=== PATIENT | female | born 1960 | race Caucasian/White ===

== ENCOUNTER 2018-05-30 22:41 | Emergency (ER) | payer MEDICARE, MEDICAID, SELFPAY ==
[2018-05-30 22:53] VITALS: BP 160/97; PULSE 105; RESP 16; TEMP 36.6; O2SAT 96
--- NOTE | 2018-05-30 23:19 | DI.CT.S_ITS ---
PROCEDURE: CT HEAD/BRAIN WO CON INDICATIONS: abnormal headache TECHNIQUE: Noncontrast 4.5 mm thick angled axial sections acquired from the foramen magnum to the vertex, with coronal and sagittal reformats. For radiation dose reduction, the following was used: automated exposure control, adjustment of mA and/or kV according to patient size. COMPARISON: None. FINDINGS: Image quality: Excellent. CSF spaces: Basal cisterns are patent. No extra-axial fluid collections. Ventricles are normal in size and shape. Brain: No midline shift. No intracranial masses or hemorrhage. Howard-white matter interface is normal. Skull and face: 0.7 cm oval circumscribed rounded soft tissue mass with punctate internal calcification within the subcutaneous tissues of the right frontal scalp, without underlying calvarial abnormality. Sinuses: Visualized sinuses and mastoids are clear. IMPRESSION: 1. No acute intracranial abnormality. 2. 0.7 cm rounded soft tissue mass with punctate internal calcification within the subcutaneous tissues of the right frontal scalp, without underlying calvarial abnormality. This may represent a sebaceous cyst. Clinical correlation recommended. This report is concordant with the overnight preliminary [facility] radiology report of Dr. Josue Gomez. Dictated by: Jamie Antonio M.D. on 05/31/2018 at 5:47 Approved by: Jamie Antonio M.D. on 05/31/2018 at 5:54
--- NOTE | 2018-05-30 23:45 | ED.OVERDOSE ---
HPI - Overdose General Chief Complaint: Toxicology Problem Stated Complaint: Possible accidental overdose Time Seen by Provider: 05/30/18 22:50 Source: patient, family (friend) and EMS Mode of arrival: ambulatory Limitations: no limitations History of Present Illness HPI Narrative: Patient is a 58-year-old female who has a history MS like disease of baseline confusion sometimes right-sided weakness. She is visiting from [place] here with a friend. She has a pill box, she thinks she may have taken double her medications. She does remember if she took them or not. However the Friday p.m. box (which is tonight), there are pills in the Box. She says she woke up this morning with a migraine which is not atypical for her she frequently has migraines get on the right side or the left side however this 1 is in the center which is abnormal. She then found out that a friend this morning. She took 10 200 mg tablets of ibuprofen to help get rid of her headache which she says did help. She has not intentionally trying her kill or harm herself. She simply cannot remember what pills she took. Possible 90 duloxetine, Synthroid x2 doses, omeprazole x2 doses. She overall is an extremely poor historian and her friend who is a physical therapist in giving much of the history. Related Data Allergies Allergy/AdvReac Type Severity Reaction Status Date / Time Many unknown allergies Allergy Uncoded 05/30/18 22:53 Review of Systems Review of Systems ROS Unobtainable: All systems reviewed & are unremarkable except as noted in HPI and below Constitutional Denies chills, Denies fever(s) and Reports headache(s) Eyes Denies change in vision, Denies eye discharge, Denies irritation and Denies loss of vision ENT Ears, Nose, Mouth, and Throat: Reports headache(s) Cardiovascular Denies dyspnea and Denies dyspnea on exertion Respiratory Denies cough, Denies dyspnea, Denies dyspnea on exertion and Denies wheezing Genitourinary Denies hematuria, Denies flank pain, Denies urinary incontinence and Denies urinary urgency Musculoskeletal Denies back pain, Denies muscle weakness, Denies numbness and Denies tingling Integumentary/Breasts Denies pruritus, Denies erythema, Denies rash and Denies wounds Neurologic Denies behavioral changes, Reports headache(s), Denies loss of vision, Denies numbness and Denies tingling Psychiatric Denies behavioral changes, Denies depression and Denies suicidal ideation Allergic/Immunologic Denies wheezing [facility] Medical History Hypertension (Acute) Hypothyroid (Acute) Multiple sclerosis (Acute) Social History (Updated 05/31/18 @ 01:59 by Cary Abel DO) Smoking Status: Never smoker alcohol intake: never substance use type: does not use Social History Smoking Status: Never smoker alcohol intake: never substance use type: does not use Comment: from out of town Exam Initial Vital Signs Initial Vital Signs: Vital Signs Temperature 97.9 F 05/30/18 22:53 Pulse Rate 105 H 05/30/18 22:53 Respiratory Rate 16 05/30/18 22:53 Blood Pressure 160/97 H 05/30/18 22:53 Pulse Oximetry 96 05/30/18 22:53 GENERAL: Alert well-appearing female and in no acute distress. HEENT: Head atraumatic,EOMI, pupils reactive, face symmetric, neck is supple CARDIOVASCULAR: Regular rate and rhythm without murmurs, rubs or gallops. RESPIRATORY: Breath sounds equal bilaterally, no wheezes rales or rhonchi. ABDOMEN: Soft, nontender. Normoactive bowel sounds all 4 quadrants. No guarding or rebound. EXTREMITIES: Normal range of motion, no clubbing or edema. Neurovascularly intact NEUROLOGICAL: Alert and oriented x4.Normal gait and speech. Cranial nerves II through XII grossly intact. dat instructor strength equal bilaterally sensation intact extremities move lower extremities equally SKIN: Warm, dry, no laceration, no petechiae, no rashes or lesions. Course Orders Ordered: ED Orders 05/30/18 23:19 CT head/brain wo con Stat 05/30/18 23:45 Acetaminophen Stat Complete Blood Count AUTO DIFF Stat Comprehensive Metabolic Panel Stat Ethanol (ETOH) Stat Salicylate Stat 05/31/18 00:14 Urine Drug Screen, Rapid Stat Discontinued Medications Acetaminophen (Tylenol) 975 mg PO NOW ONE Stop: 05/31/18 01:22 Last Admin: 05/31/18 01:24 Dose: 975 mg Sodium Chloride (Normal Saline 0.9%) 1,000 mls @ 1,000 mls/hr IV CONT ROLA Last Infusion: 05/31/18 01:40 Dose: 0 mls/hr Admin: 05/31/18 00:02 Dose: 1,000 mls/hr Vital Signs - 8 hr 05/30/18 22:53 05/31/18 01:10 Temperature 97.9 F Pulse Rate 105 H 99 H Respiratory Rate 16 17 Blood Pressure 160/97 H Blood Pressure [Right Arm] 166/99 H Pulse Oximetry 96 97 MDM - Overdose Lab Data Attestation: I reviewed the patient's lab results. Result diagrams: 05/30/18 23:45 05/30/18 23:45 Lab Results 05/30/18 05/30/18 05/31/18 Range/Units 23:45 23:45 00:14 WBC 9.8 (4.5-11.0) X10^3/uL RBC 4.23 (4.0-5.2) X10^6/uL Hgb 13.4 (12.0-16.0) g/dL Hct 39.5 (36-46) % MCV 93.5 (80-100) fL MCH 31.6 (26-34) PG MCHC 33.8 (30-36) % RDW 12.7 (11.6-14.8) % Plt Count 341 (150-400) X10^3/uL Neut % (Auto) 60.8 (50-75) % Lymph % (Auto) 28.7 (25-40) % [place] % (Auto) 9.9 (3-14) % Eos % (Auto) 0.3 L (2-4) % Baso % (Auto) 0.3 (0-2) % Neut # (Auto) 6000 (7361-3871) /uL Lymph # (Auto) 2800 (2397-0651) /uL [place] # (Auto) 1000 H (0-900) /uL Eos # (Auto) 0 (0-450) /uL Baso # (Auto) 0 (0-100) /uL Sodium 140 (137-145) mmol/L Potassium 3.9 (3.4-5.1) mmol/L Chloride 109 H (98-107) mmol/L Carbon Dioxide 21 L (22-32) mmol/L BUN 15 (7-17) mg/dL Creatinine 0.80 (0.52-1.04) mg/dL Estimated GFR > 60.0 (>60) mL/min BUN/Creatinine Ratio 18.8 (6-22) Glucose 103 H (70-100) mg/dL Calcium 9.6 (8.4-10.2) mg/dL Total Bilirubin 0.3 (0.2-1.3) mg/dL AST 19 (14-36) IU/L ALT 25 (9-52) IU/L Alkaline Phosphatase 104 (38-126) U/L Total Protein 7.3 (6.3-8.2) g/dL Albumin 4.4 (3.5-5.0) g/dL Globulin 2.9 (1.7-4.1) g/dL Albumin/Globulin Ratio 1.5 (1.0-2.8) Salicylates < 1.0 (<20) mg/dL Urine Opiates Screen Negative (Negative) Ur Oxycodone Screen Negative (Negative) Urine Methadone Screen Negative (Negative) Acetaminophen < 10 L (10-30) ug/mL Ur Barbiturates Screen Negative (Negative) U Tricyclic Antidepress Negative (Negative) Ur Phencyclidine Scrn Negative (Negative) Ur Amphetamines Screen Negative (Negative) U Methamphetamines Scrn Negative (Negative) Ur MDMA Scrn (Ecstasy) Negative (Negative) U Benzodiazepines Scrn Negative (Negative) Urine Cocaine Screen Negative (Negative) U Marijuana (THC) Screen Negative (Negative) Ethyl Alcohol < 10 mg/dL Imaging Data CT scan - head: 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 ECG Data Attestation: I personally reviewed and interpreted this ECG as follows: Prior ECG tracings: not available for review Interpretation: Sinus rhythm rate 1 0 [place] interval 160 QRS 83 QTC 381. MDM Narrative Medical decision making narrative: Patient adamantly denies any suicidal ideations. His it is unclear even if she took extra medication at all. She can't remember if she took medication although she states that she did take ibuprofen for her headache. her friend is with her and has known her for awhile. Patient does get help with medications at home somebody put some into a pillbox for her. With this time I strongly recommended that somebody be in charge of giving her her medications. If she can't remember when she took them than she is not reliable and can easily overdose. Poison Control was contacted by nursing. Recommended patient to be watched for 8 hours after ingestion. Possible ingestion time at 6:00 p.m.. Patient has not had any signs or symptoms of any overdose is. She still complains of headache. she is given for her pain. Discharge Plan Departure Patient Disposition: Home Clinical Impression: Overdose Qualifiers: Encounter type: initial encounter Injury intent: accidental or unintentional Qualified Code(s): T50.901A - Poisoning by unspecified drugs, medicaments and biological substances, accidental (unintentional), initial encounter Discharge Date/Time: 05/31/18 01:46 Interventions: ED Discharge Assessment Last Done: 05/31/18 01:45 Instructions: DI for Drug Overdose in Adults Activity Restrictions/Additional Instructions: *You have been diagnosed with accidental overdose *What to do: YOU WILL NEED SOMEONE TO GIVE YOU PILLS FROM NOW ON *Continue to take medications as directed Ibuprofen 600 mg every 6-8 hours as needed for pain do not take any for 24 hours *Follow up with your primary care provider in 2-3 days *Return to ER if you should have or any new, worsening or concerning symptoms
--- NOTE | 2018-05-30 23:48 | ED_ITS ---
HPI - Overdose General Chief Complaint: Toxicology Problem Stated Complaint: Possible accidental overdose Time Seen by Provider: 05/30/18 22:50 Source: patient, family (friend) and EMS Mode of arrival: ambulatory Limitations: no limitations History of Present Illness HPI Narrative: Patient is a 58-year-old female who has a history MS like disease of baseline confusion sometimes right-sided weakness. [place] is [place] here with a friend. She has a pill box, she thinks she may have taken double her medications. She does remember if she took them or not. However the Friday p.m. box (which is tonight), there are pills in the Box. She says she woke up this morning with a migraine which is not atypical for her she frequently has migraines get on the right side or the left side however this 1 is in the center which is abnormal. She then found out that a friend this morning. She took 10 200 mg tablets of ibuprofen to help get rid of her headache which she says did help. She has not intentionally trying her kill or harm herself. She simply cannot remember what pills she took. Possible 90 duloxetine, Synthroid x2 doses, omeprazole x2 doses. She overall is an extremely poor historian and her friend who is a physical therapist in giving much of the history. Related Data Allergies Allergy/AdvReac Type Severity Reaction Status Date / Time Many unknown allergies Allergy Uncoded 05/30/18 22:53 Review of Systems Review of Systems ROS Unobtainable: All systems reviewed & are unremarkable except as noted in HPI and below Constitutional Denies chills, Denies fever(s) and Reports headache(s) Eyes Denies change in vision, Denies eye discharge, Denies irritation and Denies loss of vision ENT Ears, Nose, Mouth, and Throat: Reports headache(s) Cardiovascular Denies dyspnea and Denies dyspnea on exertion Respiratory Denies cough, Denies dyspnea, Denies dyspnea on exertion and Denies wheezing Genitourinary Denies hematuria, Denies flank pain, Denies urinary incontinence and Denies urinary urgency Musculoskeletal Denies back pain, Denies muscle weakness, Denies numbness and Denies tingling Integumentary/Breasts Denies pruritus, Denies erythema, Denies rash and Denies wounds Neurologic Denies behavioral changes, Reports headache(s), Denies loss of vision, Denies numbness and Denies tingling Psychiatric Denies behavioral changes, Denies depression and Denies suicidal ideation Allergic/Immunologic Denies wheezing [facility] Medical History Hypertension (Acute) Hypothyroid (Acute) Multiple sclerosis (Acute) Social History (Updated 05/31/18 @ 01:59 by Cary Abel DO) Smoking Status: Never smoker alcohol intake: never substance use type: does not use Social History Smoking Status: Never smoker alcohol intake: never substance use type: does not use Comment: from out of town Exam Initial Vital Signs Initial Vital Signs: Vital Signs Temperature 97.9 F 05/30/18 22:53 Pulse Rate 105 H 05/30/18 22:53 Respiratory Rate 16 05/30/18 22:53 Blood Pressure 160/97 H 05/30/18 22:53 Pulse Oximetry 96 05/30/18 22:53 GENERAL: Alert well-appearing female and in no acute distress. HEENT: Head atraumatic,EOMI, pupils reactive, face symmetric, neck is supple CARDIOVASCULAR: Regular rate and rhythm without murmurs, rubs or gallops. RESPIRATORY: Breath sounds equal bilaterally, no wheezes rales or rhonchi. ABDOMEN: Soft, nontender. Normoactive bowel sounds all 4 quadrants. No guarding or rebound. EXTREMITIES: Normal range of motion, no clubbing or edema. Neurovascularly intact NEUROLOGICAL: Alert and oriented x4.Normal gait and speech. Cranial nerves II through XII grossly intact. material handler floorperson strength equal bilaterally sensation intact extremities move lower extremities equally SKIN: Warm, dry, no laceration, no petechiae, no rashes or lesions. Course Orders Ordered: ED Orders 05/30/18 23:19 CT head/brain wo con Stat 05/30/18 23:45 Acetaminophen Stat Complete Blood Count AUTO DIFF Stat Comprehensive Metabolic Panel Stat Ethanol (ETOH) Stat Salicylate Stat 05/31/18 00:14 Urine Drug Screen, Rapid Stat Discontinued Medications Acetaminophen (Tylenol) 975 mg PO NOW ONE Stop: 05/31/18 01:22 Last Admin: 05/31/18 01:24 Dose: 975 mg Sodium Chloride (Normal Saline 0.9%) 1,000 mls @ 1,000 mls/hr IV CONT ROLA Last Infusion: 05/31/18 01:40 Dose: 0 mls/hr Admin: 05/31/18 00:02 Dose: 1,000 mls/hr Vital Signs - 8 hr 05/30/18 22:53 05/31/18 01:10 Temperature 97.9 F Pulse Rate 105 H 99 H Respiratory Rate 16 17 Blood Pressure 160/97 H Blood Pressure [Right Arm] 166/99 H Pulse Oximetry 96 97 MDM - Overdose Lab Data Attestation: I reviewed the patient's lab results. Result diagrams: 05/30/18 23:45 05/30/18 23:45 Lab Results 05/30/18 05/30/18 05/31/18 Range/Units 23:45 23:45 00:14 WBC 9.8 (4.5-11.0) X10^3/uL RBC 4.23 (4.0-5.2) X10^6/uL Hgb 13.4 (12.0-16.0) g/dL Hct 39.5 (36-46) % MCV 93.5 (80-100) fL MCH 31.6 (26-34) PG MCHC 33.8 (30-36) % RDW 12.7 (11.6-14.8) % Plt Count 341 (150-400) X10^3/uL Neut % (Auto) 60.8 (50-75) % Lymph % (Auto) 28.7 (25-40) % [place] % (Auto) 9.9 (3-14) % Eos % (Auto) 0.3 L (2-4) % Baso % (Auto) 0.3 (0-2) % Neut # (Auto) 6000 (7751-5703) /uL Lymph # (Auto) 2800 (2392-4188) /uL [place] # (Auto) 1000 H (0-900) /uL Eos # (Auto) 0 (0-450) /uL Baso # (Auto) 0 (0-100) /uL Sodium 140 (137-145) mmol/L Potassium 3.9 (3.4-5.1) mmol/L Chloride 109 H (98-107) mmol/L Carbon Dioxide 21 L (22-32) mmol/L BUN 15 (7-17) mg/dL Creatinine 0.80 (0.52-1.04) mg/dL Estimated GFR > 60.0 (>60) mL/min BUN/Creatinine Ratio 18.8 (6-22) Glucose 103 H (70-100) mg/dL Calcium 9.6 (8.4-10.2) mg/dL Total Bilirubin 0.3 (0.2-1.3) mg/dL AST 19 (14-36) IU/L ALT 25 (9-52) IU/L Alkaline Phosphatase 104 (38-126) U/L Total Protein 7.3 (6.3-8.2) g/dL Albumin 4.4 (3.5-5.0) g/dL Globulin 2.9 (1.7-4.1) g/dL Albumin/Globulin Ratio 1.5 (1.0-2.8) Salicylates < 1.0 (<20) mg/dL Urine Opiates Screen Negative (Negative) Ur Oxycodone Screen Negative (Negative) Urine Methadone Screen Negative (Negative) Acetaminophen < 10 L (10-30) ug/mL Ur Barbiturates Screen Negative (Negative) U Tricyclic Antidepress Negative (Negative) Ur Phencyclidine Scrn Negative (Negative) Ur Amphetamines Screen Negative (Negative) U Methamphetamines Scrn Negative (Negative) Ur MDMA Scrn (Ecstasy) Negative (Negative) U Benzodiazepines Scrn Negative (Negative) Urine Cocaine Screen Negative (Negative) U Marijuana (THC) Screen Negative (Negative) Ethyl Alcohol < 10 mg/dL Imaging Data CT scan - head: 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 ECG Data Attestation: I personally reviewed and interpreted this ECG as follows: Prior ECG tracings: not available for review Interpretation: Sinus rhythm rate 1 0 [place] interval 160 QRS 83 QTC 381. MDM Narrative Medical decision making narrative: Patient adamantly denies any suicidal ideations. His it is unclear even if she took extra medication at all. She can't remember if she took medication although she states that she did take ibuprofen for her headache. her friend is with her and has known her for awhile. Patient does get help with medications at home somebody put some into a pillbox for her. With this time I strongly recommended that somebody be in charge of giving her her medications. If she can't remember when she took them than she is not reliable and can easily overdose. Poison Control was contacted by nursing. Recommended patient to be watched for 8 hours after ingestion. Possible ingestion time at 6:00 p.m.. Patient has not had any signs or symptoms of any overdose is. She still complains of headache. she is given for her pain. Discharge Plan Departure Patient Disposition: Home Clinical Impression: Overdose Qualifiers: Encounter type: initial encounter Injury intent: accidental or unintentional Qualified Code(s): T50.901A - Poisoning by unspecified drugs, medicaments and biological substances, accidental (unintentional), initial encounter Discharge Date/Time: 05/31/18 01:46 Interventions: ED Discharge Assessment Last Done: 05/31/18 01:45 Instructions: DI for Drug Overdose in Adults Activity Restrictions/Additional Instructions: *You have been diagnosed with accidental overdose *What to do: YOU WILL NEED SOMEONE TO GIVE YOU PILLS FROM NOW ON *Continue to take medications as directed Ibuprofen 600 mg every 6-8 hours as needed for pain do not take any for 24 hours *Follow up with your primary care provider in 2-3 days *Return to ER if you should have or any new, worsening or concerning symptoms
[2018-05-30 23:50] LABS: Add Manual Diff / Slide Review NO; Basophils Absolute Auto 0 /uL (0-100); Basophils Percent Auto 0.3 % (0-2); Eosinophils Absolute Auto 0 /uL (0-450); Eosinophils Percent Auto 0.3 % (2-4); Hematocrit 39.5 % (36-46); Hemoglobin 13.4 g/dL (12.0-16.0); Lymphocytes Absolute Auto 2800 /uL (1100-4500); Lymphocytes Percent Auto 28.7 % (25-40); Mean Corpuscular HGB Conc 33.8 % (30-36); Mean Corpuscular Hemoglobin 31.6 PG (26-34); Mean Corpuscular Volume 93.5 fL (80-100); Monocytes Absolute Auto 1000 /uL (0-900); Monocytes Percent Auto 9.9 % (3-14); Neutrophils Absolute Auto 6000 /uL (1500-7000); Neutrophils Percent Auto 60.8 % (50-75); Platelet Count 341 X10^3/uL (150-400); Red Blood Cell Count 4.23 X10^6/uL (4.0-5.2); Red Cell Distribution Width 12.7 % (11.6-14.8); White Blood Cell Count 9.8 X10^3/uL (4.5-11.0)
[2018-05-30 23:59] LABS: Acetaminophen < 10 ug/mL (10-30); Alanine Aminotransferase 25 IU/L (9-52); Albumin 4.4 g/dL (3.5-5.0); Albumin Globulin Ratio 1.5 (1.0-2.8); Alkaline Phosphatase 104 U/L (38-126); Aspartate Aminotransferase 19 IU/L (14-36); BUN Creatinine Ratio 18.8 (6-22); Bilirubin Total 0.3 mg/dL (0.2-1.3); Blood Urea Nitrogen 15 mg/dL (7-17); Calcium 9.6 mg/dL (8.4-10.2); Carbon Dioxide 21 mmol/L (22-32); Chloride 109 mmol/L (98-107); Estimated Glomerular Filt Rate > 60.0 mL/min (>60); Ethanol (ETOH) < 10 mg/dL; Globulin 2.9 g/dL (1.7-4.1); Glucose 103 mg/dL (70-100); HEMOLYSIS < 15 (0-50); Potassium 3.9 mmol/L (3.4-5.1); Salicylate < 1.0 mg/dL (<20); Sodium 140 mmol/L (137-145); Total Protein 7.3 g/dL (6.3-8.2)
[2018-05-31] MEDS: SODIUM CHLORIDE 0.9% 1,000 ML 1000 ML IV (00:02)
--- NOTE | 2018-05-31 00:17 | PC.NURSE ---
Pt also potentially took doses of 5mg lisinopril,60mg protonix,90mg duloxetine,3 times dose thyroid and topiramate. Pt continues with headache which she reports started this morning. Reports due to pt's condition, she has times of confusion. Pt denies any thoughts of wanting to hurt herself. She reports taking an increased dose of ibuprofen to help with headache.
[2018-05-31 00:24] LABS: Urine Amphetamines Negative (Negative); Urine Barbiturates Negative (Negative); Urine Benzodiazepines Negative (Negative); Urine Cocaine Negative (Negative); Urine MDMA Negative (Negative); Urine Methadone Negative (Negative); Urine Methamphetamines Negative (Negative); Urine Morphine/Opi cutoff 2000 Negative (Negative); Urine Oxycodone Negative (Negative); Urine Phencyclidine Negative (Negative); Urine Tetrahydrocannabinol Negative (Negative); Urine Tricyclic Antidepressant Negative (Negative)
--- NOTE | 2018-05-31 00:32 | PC.NURSE ---
Called Poison control, Talked to Filiberto, a pharmacist, who states Ibuprofen not a large enough dose to cause any renal failure, may cause GI upset. The Lisinopril is a low dose but could potentially watch for hypotension, the thyroid medication to not take for the next day or two. Protonix is non toxic and okay.The duloxetine can cause, hypertension, tachycardia and hyperthermia, stated to watch for 8 hours after ingestion. If starts having symptoms to treat with ativan or benzo's.
[2018-05-31 01:10] VITALS: BP 166/99; PULSE 99; RESP 17; O2SAT 97
[2018-05-31] MEDS: ACETAMINOPHEN 325 MG TABLET 975 MG PO (01:24)
== END 2018-05-31 01:46 | disposition home or self-care (01) ==
PROVIDERS: Emergency Provider Emergency Medicine
DX: T50.901A Poisoning by unspecified drugs, medicaments and biological substances, accidental (unintentional), initial encounter (principal); R51 Headache
CPT/HCPCS: 36591; 70450; 80053; 80305; 80320; 80329; 85025; 93005; 96360; 96361; 99283; 99285; G0480